=== PATIENT | male | born 1955 | race Caucasian/White ===

== ENCOUNTER 2016-04-28 11:49 | Emergency (ER) ==
[2016-04-28 12:06] VITALS: BP 120/69
--- NOTE | 2016-04-28 12:18 | PROVIDER DOCUMENTATION ---
HPI-General Adult - General Chief Complaint: Sore Throat Stated Complaint: SORE THROAT/FEVER Time Seen by Provider: 04/28/16 12:04 Source: patient Allergies/Adverse Reactions: Patient Allergies Allergy/AdvReac Type Severity Reaction Status Date / Time No Known Allergies Allergy Verified 04/28/16 12:06 - History of Present Illness -Gen Adult Nature of Presenting Problems: Pt. is 60 yom that presents with c/o sore throat that began two days ago. Pt. reports it is hard to swallow and that he has been running a fever. Pt. denies any other symptoms at this time. Pt. reports he took Tylenol prior to coming to the ED. Pt. was seen for the same by his PCP and was given Amoxicillin but states he has only taken one dose. Pt. reports they didn't test him for anything. Location of Pain/Injury: reports: mouth (Throat). denies: head, face, neck, chest, upper extremity, hand(s), abdomen, back, pelvis, genitalia, lower extremity, feet, upper body, lower body, generalized Pain Radiation: reports: no radiation Quality of Pain: reports: aching. denies: burning, cramping, dull, fullness, indigestion, pressure, sharp, stabbing, tearing, throbbing, tightness Severity: reports: moderate. denies: mild, severe Onset/Duration: reports: gradual, 2 days ago Timing: reports: still present, constant. denies: improving, gone now, resolved prior to arrival, intermittent, changing over time, getting worse Context/Activities at Onset: reports: none. denies: recent emotional stress, recent physical stress, recent trauma history, possible bad food, cold exposure , out of country travel Modifying Factors: improves with: nothing Associated Symptoms: reports: EENT symptoms. denies: anxiety, arm pain, back/ neck pain, chest pain, constipation, cough, diaphoresis, diarrhea, dizziness, fatigue, fever/chills, genitourinary problems, headaches, heartburn, joint pain , loss of appetite, malaise, muscle aches, sinus congestion/drainage, nausea, rash, seizure, shortness of breath, sensory/motor loss, pain with inspiration, swelling/mass in abdomen, syncope, vomiting, weakness, trouble walking Similar Symptoms Previously?: Yes Recently seen or treated by another doctor?: Yes Review of Systems - Adult - REVIEW OF SYSTEMS - ADULT Constitutional: reports: see HPI, fever. denies: chills, fatique, night sweats Eyes: reports: see HPI. denies: discharge, blurred vision, double vision, eye pain Ears, Nose, Mouth & Throat: reports: see HPI, throat pain. denies: ear discharge, ear pain, sinus problem, nose pain, loose teeth Cardiovascular: reports: see HPI. denies: chest pain, irregular heart rate, palpitations, syncope Respiratory: reports: see HPI. denies: chronic cough, cough, dyspnea on exertion, pleurisy, shortness of breath, wheezing Gastrointestinal: reports: see HPI. denies: abdominal pain, hematemesis, difficulty swallowing, frequent heartburn, nausea, poor appetite, vomiting Genitourinary: reports: see HPI. denies: dysuria, discharge, flank pain, hematuria, incontinence, urgency Musculoskeletal: reports: see HPI. denies: bone pain, back pain, joint pain, muscle aches, neck pain Integumentary: reports: see HPI. denies: hives, hair loss, itching, rash, skin thickening Neurological: reports: see HPI. denies: ataxia, headache/migraines, numbness, seizure, tremors Psychiatric: reports: see HPI. denies: anxiety, depression, emotional problems , insomnia, panic attacks, suicidal thoughts Past History - Adult - PAST MEDICAL HISTORY-ADULT Review of Records: reports: Old Records Reviewed, Nursing Assessment Review, Medications Reviewed, Social history reviewed & non-contributory. Physical Exam-General - PHYSICAL EXAM-ADULT Initial Vital Signs Reviewed: Yes - CONSTITUTIONAL General Appearance: alert, mild distress, thin. negative: anxious, lethargic, slow to respond, obtunded, combative - EYES Eyes: PERRL/EOMI, pink conjunctivae. negative: conjuctival exudate, photophobia , scleral icterus, subconjunctival hemorrhage - HEAD, EARS, NOSE, MOUTH & THROAT HENMT: moist mucous membranes, pharyngeal erythema. negative: angioedema, tonsillar exudate, frontal tenderness, maxillary tenderness - NECK Neck: non-tender, full range of motion, supple, normal inspection. negative: lymphadenopathy, trachial deviation, thyromegaly - RESPIRATORY Respiratory: lungs clear, normal breath sounds. negative: crackles, rales, rhonchi, stridor, wheezing - CARDIOVASCULAR Cardiovascular: normal peripheral pulses, regular rate, rhythm, no edema, no JVD , no murmur. negative: extra beats, friction rub, irregularly irregular - CHEST (BREASTS) Chest/Breast: deferred - GASTROINTESTINAL (ABDOMEN) Abdominal Exam: normal bowel sounds, non tender, soft. negative: distended, guarding, rigid, rebound, tenderness, hernia, mass - GENITOURINARY Male Genitalia: deferred Rectal Exam: deferred Hemoccult Exam: deferred - LYMPHATIC Lymphatic: no adenopathy. negative: axilla node tender, cervical node tenderness - MUSCULOSKELETAL Back Exam: normal inspection, no CVA tenderness, no vertebral tenderness. negative: ecchymosis, muscle spasm, vertebral tenderness Extremity: normal range of motion, non-tender, normal gait, normal inspection. negative: deformity, erythema, inflammation, swelling, tenderness Peripheral Pulses: radial (R): 2+, radial (L): 2+ - SKIN Integumentary: normal color, normal turgor, warm/dry. negative: cyanosis, diaphoresis, ecchymosis, erythema, jaundice, mottled, pallor, petechiae, purpura , rash, swelling, tenderness - NEUROLOGIC Neurologic: grossly normal, no motor/sensory deficits. negative: aphasia, facial droop, focal weakness, motor weakness, sensory deficit - PSYCHIATRIC Psych/Mental Status: normal mood/affect, normal thought content, normal thought process, oriented x 3. negative: anxious, paranoid, tearful Progress - PLAN OF CARE/RESULTS Progress/Plan/Lab Results: Discussed results and plan of care with patient. Patient agrees with plan and verbalizes understanding. Vital Signs Temp Pulse Resp BP Pulse Ox 04/28/16 11:57 99.3 F 101 H 20 120/69 97 No Known Allergies Allergy (Verified 04/28/16 12:06) No Home Medications 04/28/16 Laboratory 04/28/16 04/28/16 04/28/16 13:14 12:00 12:00 WBC 12.74 H RBC 4.72 Hgb 15.0 Hct 44.1 MCV 93.4 MCH 31.8 H MCHC 34.0 RDW Std Deviation 12.7 Plt Count 202 MPV 9.9 Immature Gran % (Auto) 0.2 Neut % (Auto) 85.0 H Lymph % (Auto) 5.9 L [place] % (Auto) 8.8 Eos % (Auto) 0.0 Baso % (Auto) 0.1 Immature Gran # (Auto) 0.02 Neut # (Auto) 10.84 H Lymph # (Auto) 0.75 L [place] # (Auto) 1.12 H Eos # (Auto) 0.00 Baso # (Auto) 0.01 Influenza A (Rapid) NEGATIVE Influenza B (Rapid) NEGATIVE Group A Strep Rapid NEGATIVE Orders Category Date Time Status CHEST-2 VIEWS [RAD] Stat Exams 04/28/16 12:39 Taken CBC WITH DIFF [HEME] Stat Lab 04/28/16 13:[address] Stat Lab 04/28/16 12:00 Completed strep [DIRECT STREP PL] Stat Lab 04/28/16 12:00 Completed Laboratory Tests 04/28/16 04/28/16 04/28/16 12:00 12:00 13:14 WBC 12.74 H RBC 4.72 Hgb 15.0 Hct 44.1 MCV 93.4 MCH 31.8 H MCHC 34.0 RDW Std Deviation 12.7 Plt Count 202 MPV 9.9 Immature Gran % (Auto) 0.2 Neut % (Auto) 85.0 H Lymph % (Auto) 5.9 L [place] % (Auto) 8.8 Eos % (Auto) 0.0 Baso % (Auto) 0.1 Immature Gran # (Auto) 0.02 Neut # (Auto) 10.84 H Lymph # (Auto) 0.75 L [place] # (Auto) 1.12 H Eos # (Auto) 0.00 Baso # (Auto) 0.01 Influenza A (Rapid) NEGATIVE Influenza B (Rapid) NEGATIVE Group A Strep Rapid NEGATIVE - XRAY 1 XRAY Study: Chest XRAY Interpretation: CONNOR (Lorene) Departure - Departure Time of Disposition Order: 13:23 DIAGNOSIS: Acute pharyngitis Qualifiers: Pharyngitis/tonsillitis etiology: unspecified etiology Qualified Code(s): J02.9 - Acute pharyngitis, unspecified Disposition: HOME 01 Certified Medical Emergency: Emergent Condition: Stable Additional Instructions: Follow up with primary care physician Take medications previously prescribed Take new medications as directed Return to ED for any concerns or worsening of symptoms ED Follow Up Instructions: You have been treated by a care provider in the Emergency Department. These instructions are being provided to you so you can have an understanding of how to care for yourself upon discharge. Upon discharge from the Emergency Department, you are responsible for making arrangements for follow-up care by a physician of your choice. Take all prescribed medications as directed. Return to the Emergency Department immediately for any new or worsening symptoms. You may call the Physician Referral phone number at [phone] to obtain a list of Physicians who are taking new patients. Prescriptions: Lidocaine 2% Viscous [Xylocaine 2% Viscous] 15 ml MT Q3H PRN PRN #1 bottle PRN Reason: Pain Attestation - Physician/ Mid-level Attestation Patient care was provided by Mid-level provider ([employer]TR[employer] TECHNOLOGIST SONOGRAPHER/PA):: Yes Mid-level provider:: Wolfgang Avilez Mid-level documentation review:: The Mid-level provider documentation, treatment plan and medical decision making was reviewed by the physician who agrees with all treatment and medical decision making by the MLP.
[2016-04-28 13:18] LABS: MANUAL DIFF NEEDED? NO
[2016-04-28 13:19] LABS: BASO% 0.1 % (0.0-0.8); HEMATOCRIT 44.1 % (42.0-52.0); IMM GRAN# 0.02 X1000 (0.0-0.04); IMM GRAN% 0.2 % (0.0-0.5); LYMPH# 0.75 X1000 (1.2-3.4); LYMPH% 5.9 % (20.5-51.1); MCH 31.8 PG (27-31); MCV 93.4 FL (81-99); MONO# 1.12 X1000 (0.11-0.59); MONO% 8.8 % (1.7-9.3); MPV 9.9 FL (7.4-10.4); PLT 202 X1000 (130-400); RBC 4.72 XMIL (4.7-6.1)
[2016-04-28] MEDS ORDERED: BICILLIN L-A IM ONE (13:24)
== END 2016-04-28 13:55 | disposition home or self-care (01) ==
LOC: P.ED 11:49
DX: J02.9 Acute pharyngitis, unspecified (principal); R50.9 Fever, unspecified
CPT/HCPCS: 36415; 71020; 85025; 87081; 87430; 87804; 96372; J0561